=== PATIENT | male | born 1970 | race Caucasian/White ===

== ENCOUNTER 2023-03-21 09:28 | Outpatient (CLI) | payer OTHER | END 2023-03-21 09:29 | disposition home or self-care (01) | LOC: CSHRAD 09:28 | PROVIDERS: ATTEND Urology | DX: N20.0 Calculus of kidney (principal); Z96.0 Presence of urogenital implants | CPT/HCPCS: 74018 ==

== ENCOUNTER 2024-03-29 14:52 | Emergency (ER) | payer OTHER ==
[2024-03-29] MEDS ORDERED: Metoclopramide HCl 10 MG (2 mL) VIAL ONE (16:00)
[2024-03-29] MEDS ORDERED: diphenhydrAMINE 50 MG/ML VIAL ONE (16:00)
[2024-03-29] MEDS ORDERED: Acetaminophen 500 MG TAB ONE (16:01)
[2024-03-29] MEDS ORDERED: Ketorolac Tromethamine 30 MG (1 mL) VIAL ONE (16:01)
[2024-03-29 16:28] LABS: #Basophils 0.02 10x3/uL (0.0-0.2); #Eosinphils 0.01 10x3/uL (0.0-0.5); #Monocytes 1.43 10x3/uL (0.0-1.1); #Neutrophils 7.38 10x3/uL (1.5-8.4); %Basophils 0.2 % (0.0-2.0); %Eosinophils 0.1 % (0.0-6.0); %Neutrophils 77.3 % (40.0-75.0); Hematocrit 43.2 % (38.8-50.0); Hemoglobin 14.7 g/dL (13.5-17.5); Mean Corpuscular Hemoglobin 32.5 pg (27.0-33.0); Mean Corpuscular Volume 95.4 fl (81.2-95.1); Mean Platelet Volume 9.8 fl (7.4-10.4); Platelet Count 172 10x3/uL (150-450); RBC Distribution Width 11.7 % (11.5-14.5); Red Blood Cell (RBC) Count 4.53 10x6/uL (4.32-5.72); White Blood Cell (WBC) Count 9.6 10x3/uL (3.5-10.5)
[2024-03-29 16:48] LABS: ALT (SGPT) 33 U/L (8-55); AST (SGOT) 48 U/L (5-34); Albumin 3.7 g/dL (3.5-5.0); Alkaline Phosphatase 53 U/L (40-110); Anion Gap 14 mmol/L (10-20); BUN (Urea Nitrogen) 12 mg/dL (8.4-25.7); Bilirubin, Total 0.8 mg/dL (0.2-1.2); Calc. Creatinine Clearance 0 mL/min (70-130); Carbon Dioxide 21 mmol/L (22-29); Chloride 102 mmol/L (98-107); Estimated GFR 70; Globulin 3.6 g/dL (2.4-3.5); Glucose 106 mg/dL (70-105); Potassium 4.4 mmol/L (3.5-5.1); Protein, Total 7.3 g/dL (6.0-8.3); Sodium 133 mmol/L (136-145)
[2024-03-29 16:53] LABS: Lipase 16 U/L (8-78); Magnesium 2.2 mg/dL (1.6-2.6)
[2024-03-29 16:54] LABS: Troponin I Less than 0.010 ng/mL (< 0.028)
[2024-03-29 16:57] LABS: Influenza A by NAA Not Detected (NotDetected); Influenza B by NAA Not Detected (NotDetected); RSV by NAA Not Detected (NotDetected); SARS-CoV-2 NAA Rapid Test Not Detected (NotDetected)
[2024-03-29 17:37] LABS: Bilirubin Neg (Negative); Blood, Urine 50 (Negative); Clarity Clear (Clear); Glucose, Urine (Dipstick) Normal (Negative); Ketone, Urine 5 mg/dL (Negative); Leukocyte Negative (Negative); Nitrite Negative (Negative); Protein, Urine (Dipstick) 30 mg/dl (Neg-Trace); Specific Gravity, Urine 1.005 (1.005-1.030); Urobilinogen Normal mg/dL (Less than 2)
[2024-03-29 17:44] LABS: CAUTI Indications for Culture Alt mental st,lethar; Squamous Epithelial 0-3 HPF (0-3)
[2024-03-29 17:45] LABS: WBC/HPF 0-3 HPF (0-3)
[2024-03-29 17:46] LABS: Bacteria/HPF 2+ HPF (None Seen)
[2024-03-29 17:47] LABS: Urine Culture Reflex No No
== END 2024-03-29 18:43 | disposition home or self-care (01) ==
LOC: CSHERS 14:52
DX: R51.9 Headache, unspecified (principal); R50.9 Fever, unspecified; F17.210 Nicotine dependence, cigarettes, uncomplicated
CPT/HCPCS: 0241U; 36415; 71045; 80053; 81001; 83605; 83690; 83735; 84484; 85025; 86140; 87040; 87081; 87086; 87430; 93005; 96374; 96375; J1200; J1885; J2765